=== PATIENT | male | born 1965 | race Caucasian/White ===

== ENCOUNTER 2016-08-28 09:21 | Observation (INO) | payer MEDICARE, OTHER ==
[2016-08-28 09:28] VITALS: BMI 33.9
--- NOTE | 2016-08-28 09:44 | PDOC ---
History of Present Illness <Ted Burrell - Last Filed: 08/28/16 16:31> - General History Source: Patient Exam Limitations: No Limitations - History of Present Illness Initial Comments: 08/28/16 11:15 The patient is a 51 year old male, former smoker (quit one year ago), with a significant past medical history of work related back pain s/p 4 surgeries, HTN , and HLD who presents to the emergency department today for further evaluation of chest tightness, SOB, headache, back pain, and productive cough since yesterday. The patient notes that his back pain is normal to his baseline but notes that is accompanied by sharp right sided pain. The patient states that he is coughing up yellow-white sputum. The patient states that he took Tylenol with minimal relief of symptoms. The patient denies flu shot and sick contacts. The patient denies fever, chills, and sweats. The patient denies nausea, vomiting, and diarrhea. <Howard Wilson - Last Filed: 08/28/16 18:38> - General Chief Complaint: Chest Pain Stated Complaint: CHEST PAIN, SOB Time Seen by Provider: 08/28/16 09:43 Past History - Past Medical History Anemia: No Asthma: No Cancer: No Cardiac Disorders: No CVA: No COPD: No CHF: No Dementia: No Diabetes: No GI Disorders: No Disorders: No HTN: Yes Hypercholesterolemia: Yes Kidney Stones: No Liver Disease: No Suicide Attempt (Hx): No Seizures: Yes (XANAX RELATED) Thyroid Disease: No - Surgical History Abdominal Surgery: No Appendectomy: No Cardiac Surgery: No Cholecystectomy: No Lung Surgery: No Neurologic Surgery: Yes (NECK & BACK FUSSION) Orthopedic Surgery: No - Reproductive History Testicular Surgery: No - Immunization History Td Vaccination: Yes (2010) Immunization Up to Date: Yes - Psycho/Social/Smoking Cessation Hx Anxiety: Yes Suicidal Ideation: No Smoking Status: Yes Smoking History: Former smoker Have you smoked in the past 12 months: Yes Number of Cigarettes Smoked Daily: 20 Information on smoking cessation initiated: No 'Breaking Loose' booklet given: 10/23/12 Hx Alcohol Use: No Drug/Substance Use Hx: No Substance Use Type: None Hx Substance Use Treatment: No <Ted Burrell - Last Filed: 08/28/16 16:31> <Howard Wilson - Last Filed: 08/28/16 18:38> - Past Medical History Allergies/Adverse Reactions: Allergies Allergy/AdvReac Type Severity Reaction Status Date / Time No Known Allergies Allergy Verified 08/28/16 09:22 Home Medications: Ambulatory Orders Albuterol Sulfate Inhaler - [Ventolin HFA Inhaler -] 1 - 2 inh PO Q4H #2 inhaler 08/28/16 Levofloxacin [Levaquin] 750 mg PO ONCE #10 tab 08/28/16 Lisinopril [Prinivil] 5 mg PO DAILY 08/28/16 Morphine Sulfate [Morphine Sulfate ER] 20 mg PO BID 08/28/16 Oxycodone HCl 30 mg PO QID 08/28/16 Rosuvastatin Calcium [Crestor] 10 mg PO DAILY 08/28/16 Review of Systems - Review of Systems Able to Perform ROS?: Yes Comments:: 08/28/16 11:17 GENERAL/CONSTITUTIONAL: No fever or chills. No weakness. HEAD, EYES, EARS, NOSE AND THROAT: No change in vision. No ear pain or discharge. No sore throat. CARDIOVASCULAR: No chest pain or shortness of breath. RESPIRATORY: (+) Cough, Chest tightness, SOB, wheezing, or hemoptysis. GASTROINTESTINAL: No nausea, vomiting, diarrhea or constipation. GENITOURINARY: No dysuria, frequency, or change in urination. MUSCULOSKELETAL: (+) Back pain. SKIN: No rash NEUROLOGIC: No headache, vertigo, loss of consciousness, or change in strength/ sensation. ENDOCRINE: No increased thirst. No abnormal weight change. HEMATOLOGIC/LYMPHATIC: No anemia, easy bleeding, or history of blood clots. ALLERGIC/IMMUNOLOGIC: No hives or skin allergy. <Howard Wilson - Last Filed: 08/28/16 18:38> *Physical Exam - Vital Signs Last Vital Signs Temp Pulse Resp BP Pulse Ox 98 F 70 20 143/73 97 08/28/16 09:23 08/28/16 09:23 08/28/16 09:23 08/28/16 09:23 08/28/16 09:23 <Ted Burrell - Last Filed: 08/28/16 16:31> - Vital Signs Last Vital Signs Temp Pulse Resp BP Pulse Ox 98 F 70 20 143/73 97 08/28/16 09:23 08/28/16 09:23 08/28/16 09:23 08/28/16 09:23 08/28/16 10:32 - Physical Exam Comments: 08/28/16 11:18 GENERAL: Awake, alert, and fully oriented, in no acute distress HEAD: No signs of trauma EYES: PERRLA, EOMI, sclera anicteric, conjunctiva clear ENT: Auricles normal inspection, hearing grossly normal, nares patent, oropharynx clear without exudates. Moist mucosa NECK: Normal ROM, supple, no lymphadenopathy, JVD, or masses LUNGS: (+) Wheezing. No crackles CHEST: (+) Chest tenderness HEART: Regular rate and rhythm, normal S1 and S2, no murmurs, rubs or gallops ABDOMEN: Soft, nontender, normoactive bowel sounds. No guarding, no rebound. No masses EXTREMITIES: Normal range of motion, no edema. No clubbing or cyanosis. No cords, erythema, or tenderness NEUROLOGICAL: Cranial nerves II through XII grossly intact. Normal speech, normal gait SKIN: Warm, Dry, normal turgor, no rashes or lesions noted. <Howard Wilson - Last Filed: 08/28/16 18:38> Heart Score/ECG Review - ECG Impressions Comment:: 08/28/16 11:23 ECG Impression: Normal sinus rhyth. Voltage criteria for LVH. Otherwise normal. <Howard Wilson - Last Filed: 08/28/16 18:38> ED Treatment Course - LABORATORY CBC & Chemistry Diagram: 08/28/16 10:20 08/28/16 10:20 <Ted Burrell - Last Filed: 08/28/16 16:31> - LABORATORY CBC & Chemistry Diagram: 08/28/16 10:20 08/28/16 10:20 - ADDITIONAL ORDERS Additional order review: Laboratory Results 08/28/16 10:20 Sodium 139 Potassium 4.1 Chloride 104 Carbon Dioxide 26 Anion Gap 9 BUN 19 H Creatinine 0.9 D Creat Clearance w eGFR > 60 Random Glucose 82 Calcium 8.8 Total Bilirubin 0.4 AST 56 H D ALT 31 D Alkaline Phosphatase 62 Total Protein 6.8 Albumin 3.2 L 08/28/16 10:20 Influenza Types A,B Antigen (TIM) - Final Nasopharyngeal Swab - Final 08/28/16 10:20 RBC 4.98 MCV 72.3 L MCHC 31.7 L RDW 20.6 H MPV 7.2 L Neutrophils % 81.4 Lymphocytes % 7.7 L Monocytes % 10.5 H D Eosinophils % 0.1 Basophils % 0.3 - Medications Given in the ED: ED Medications Discontinued Medications Generic Name Dose Route Start Last Admin Trade Name Nicki PRN Reason Stop Dose Admin Albuterol Sulfate 1 amp 08/28/16 10:01 08/28/16 10:46 Ventolin 0.083% Nebulizer Soln - NEB 08/28/16 10:02 1 amp ONCE ONE Administration Ketorolac Tromethamine 30 mg 08/28/16 10:04 08/28/16 10:46 Toradol Injection - IVPUSH 08/28/16 10:05 30 mg ONCE ONE Administration Morphine Sulfate 4 mg 08/28/16 10:04 08/28/16 10:46 Morphine Injection - IVPUSH 08/28/16 10:05 4 mg ONCE ONE Administration Ondansetron HCl 4 mg 08/28/16 10:04 08/28/16 10:46 Zofran Injection IVPB 08/28/16 10:05 4 mg ONCE ONE Administration <Howard Wilson - Last Filed: 08/28/16 18:38> Medical Decision Making - Medical Decision Making 08/28/16 15:[address] Armijo, Will treat as outpatient with Levaquin. CT confirmed Pneumonia but negative for Chest Mass. <Ted Burrell - Last Filed: 08/28/16 16:31> - Medical Decision Making 08/28/16 14:39 Dr. Beach's office called Dr. Armijo is components engineer for Dr. Beach today. 08/28/16 14:42 Dr. Armijo's note says that he admits to hospitalist during the week. 08/28/16 16:40 Dr. Armijo paged overhead. 08/28/16 16:46 Dr. Armijo is present in the ED. Case discussed. Elects to send patient home. 08/28/16 16:23 Dr. Armijo is present in the ED. He said that Dr. Beach would like to admit the patient by personal request. <Howard Wilson - Last Filed: 08/28/16 18:38> *DC/Admit/Observation/Transfer - Discharge Dispostion Admit: Yes - Attestations Physician Attestion: 08/28/16 09:44 I, Dr. Ted Burrell, attest that this document has been prepared under my direction and personally reviewed by me in its entirety. I further attest, that it accurately reflects all work, treatment, procedures and medical decision -making performed by me. <Ted Burrell - Last Filed: 08/28/16 16:31> <Howard Wilson - Last Filed: 08/28/16 18:38> Diagnosis at time of Disposition: Pneumonia Qualifiers: Pneumonia type: due to unspecified organism Laterality: left Lung location: lower lobe of lung Qualified Code(s): J18.9 - Pneumonia, unspecified organism - Discharge Dispostion Condition at time of disposition: Improved - Prescriptions - Referrals - Patient Instructions
[2016-08-28] MEDS ORDERED: ALBUTEROL SO4 0.083% IH SOL 2.5 MG/3 ML VIAL.NEB. NEB ONE (10:01)
[2016-08-28] MEDS ORDERED: morphine CARPU-JECT 4 MG/1 ML DISP.SYRIN IVPUSH ONE (10:04)
[2016-08-28] MEDS ORDERED: KETOROLAC TROMETHAMINE 30 MG/1 ML VIAL IVPUSH ONE (10:04)
[2016-08-28] MEDS ORDERED: ONDANSETRON 4 MG/2 ML VIAL IVPB ONE (10:04)
[2016-08-28 10:33] LABS: BASOPHIL 0.3 % (0-2.0); EOSINOPHIL 0.1 % (0-4.5); MCH 22.9 pg (25.7-33.7); MCHC 31.7 g/dl (32.0-35.9); MEAN CELL VOLUME 72.3 fl (80-96); MEAN PLT VOLUME 7.2 fl (7.5-11.1); NEUTROPHILS 81.4 % (42.8-82.8); PLATELET COUNT 172 K/MM3 (134-434); RDW 20.6 % (11.9-15.9); WHITE BLOOD COUNT 10.7 K/mm3 (4.0-10.0)
[2016-08-28] MEDS ORDERED: KETOROLAC TROMETHAMINE 30 MG/1 ML VIAL ONE (10:39)
[2016-08-28] MEDS ORDERED: morphine CARPU-JECT 4 MG/1 ML DISP.SYRIN ONE (10:39)
[2016-08-28] MEDS ORDERED: ONDANSETRON 4 MG/2 ML VIAL ONE (10:39)
[2016-08-28 11:04] LABS: ALBUMIN 3.2 g/dl (3.4-5.0); ALK PHOS 62 U/L (45-117); ANION GAP 9 (8-16); BILIRUBIN,TOTAL 0.4 mg/dL (0.2-1.0); CALCIUM 8.8 mg/dL (8.5-10.1); CO2 26 mmol/L (21-32); CREATININE 0.9 mg/dL (0.7-1.3); GLUCOSE,RANDOM 82 mg/dL (74-106); SGOT/AST 56 U/L (15-37); SGPT/ALT 31 U/L (12-78); TOT PROT 6.8 g/dl (6.4-8.2)
[2016-08-28 11:27] LABS: HYPOCHROMIA 2+
[2016-08-28 11:28] LABS: ANISOCYTOSIS 1+; MICROCYTOSIS 1+
[2016-08-28] MEDS ORDERED: cefTRIAXone 1 GM/50 ML BAG (PRE-DOCKED) IVPB ONE (11:42)
[2016-08-28] MEDS ORDERED: AZITHROMYCIN IVPB 500 MG in DEXTROSE 5%-WATER - 250 ML IVPB ONE (11:42)
[2016-08-28] MEDS ORDERED: morphine CARPU-JECT 10 MG/1 ML DISP.SYRIN IVPUSH ONE ×2 (11:43→15:20)
[2016-08-28] MEDS ORDERED: CEFTRIAXONE 50 ML ONE (12:20)
[2016-08-28] MEDS ORDERED: morphine CARPU-JECT 10 MG/1 ML DISP.SYRIN ONE ×2 (12:20→15:33)
[2016-08-28] MEDS ORDERED: AZITHROMYCIN IVPB 250 ML IVPB ONE (12:39)
[2016-08-28] MEDS ORDERED: ACETAMINOPHEN 325 MG TABLET (FP) PO PRN (16:33)
[2016-08-28] MEDS ORDERED: ONDANSETRON 4 MG/2 ML VIAL IVPB PRN (16:33)
--- NOTE | 2016-08-28 16:40 | HP ---
Admitting History and Physical - Primary Care Physician PCP: Michael Beach - Admission Chief Complaint: I am having pain History of Present Illness: Mr Perez is a 51 year old male who comes in with pain in his back. He has chronic pain but says it is worse recently. He says it is poorly controlled with his current narcotic regimen. He also notes he is having cough with minimal sputum production. He denies fevers, chills, lightheadedness, chest pain , shortness of breath, nausea, vomiting, diarrhea, constipation, or edema. History Source: Patient Limitations to Obtaining History: No Limitations - Past Medical History Cardiovascular: Yes: HTN Musculoskeletal: Yes: Chronic low back pain - Past Surgical History Additional Past Surgical History: back surgery - Smoking History Smoking history: Former smoker Have you smoked in the past 12 months: Yes Aproximately how many cigarettes per day: 20 - Alcohol/Substance Use Hx Alcohol Use: No History of Substance Use: reports: None - Social History Usual Living Arrangement: Yes: With Spouse ADL: Independent History of Recent Travel: No Home Medications - Allergies Allergies/Adverse Reactions: Allergies Allergy/AdvReac Type Severity Reaction Status Date / Time No Known Allergies Allergy Verified 08/28/16 09:22 - Home Medications Home Medications: Ambulatory Orders Albuterol Sulfate Inhaler - [Ventolin HFA Inhaler -] 1 - 2 inh PO Q4H #2 inhaler 08/28/16 Levofloxacin [Levaquin] 750 mg PO ONCE #10 tab 08/28/16 Lisinopril [Prinivil] 5 mg PO DAILY 08/28/16 Morphine Sulfate [Morphine Sulfate ER] 20 mg PO BID 08/28/16 Oxycodone HCl 30 mg PO QID 08/28/16 Rosuvastatin Calcium [Crestor] 10 mg PO DAILY 08/28/16 Family Disease History - Family Disease History Family Disease History: Heart Disease: Father Review of Systems Findings/Remarks: Full review of systems obtained, as per HPI and otherwise negative Physical Examination Vital Signs: Vital Signs Temperature 98 F 08/28/16 09:23 Pulse Rate 70 08/28/16 09:23 Respiratory Rate 20 08/28/16 09:23 Blood Pressure 143/73 08/28/16 09:23 O2 Sat by Pulse Oximetry (%) 97 08/28/16 10:32 Constitutional: Yes: Well Nourished, No Distress, Calm Eyes: Yes: Conjunctiva Clear, EOM Intact HENT: Yes: Atraumatic, Normocephalic Cardiovascular: Yes: Regular Rate and Rhythm. No: Gallop, Murmur, Rub Respiratory: Yes: Regular, CTA Bilaterally. No: Rales, Rhonchi, Wheezes Gastrointestinal: Yes: Normal Bowel Sounds, Soft. No: Distention, Tenderness Extremities: Yes: WNL Edema: No Labs: CBC, BMP 08/28/16 10:20 08/28/16 10:20 Imaging - Results Chest X-ray: Report Reviewed, Image Reviewed Cat Scan: Report Reviewed Problem List - Problems (1) Pneumonia Assessment/Plan: -admit to hospital for IV antibiotics -if remains afebrile with normal WBC for 48 hours, can discharge home -start rocephin and zithromax Code(s): J18.9 - PNEUMONIA, UNSPECIFIED ORGANISM Qualifiers: Pneumonia type: due to unspecified organism Laterality: left Lung location: lower lobe of lung Qualified Code(s): J18.9 - Pneumonia, unspecified organism (2) HTN (hypertension) Assessment/Plan: -continue lisinopril and HCTZ Code(s): I10 - ESSENTIAL (PRIMARY) HYPERTENSION (3) Chronic pain Assessment/Plan: -pharmacy called -continue on home regimen without change -followed by pain management Code(s): G89.29 - OTHER CHRONIC PAIN
--- NOTE | 2016-08-28 17:23 | EKG ---
Test Reason : Blood Pressure : / mmHG Vent. Rate : 067 BPM Atrial Rate : 067 BPM P-R Int : 136 ms QRS Dur : 098 ms QT Int : 410 ms P-R-T Axes : 022 -29 -06 degrees QTc Int : 433 ms NORMAL SINUS RHYTHM MODERATE VOLTAGE CRITERIA FOR LVH, MAY BE NORMAL VARIANT BORDERLINE ECG WHEN COMPARED WITH ECG OF 06-MAR-2014 14:37, MINIMAL CRITERIA FOR SEPTAL INFARCT ARE NO LONGER PRESENT Confirmed by NIECY PRIDE, WILD ([id number]) on 08/28/2016 5:22:37 PM Referred By: Confirmed By:WILD PEMBERTON MD
[2016-08-28] MEDS ORDERED: oxyCODONE HCL 5 MG TABLET ONE (18:06)
[2016-08-28] MEDS: oxyCODONE HCL 5 MG TABLET PO SCH ×2 (18:11→19:03)
[2016-08-28] MEDS: DICLOFENAC SODIUM 25 MG TABLET.DR PO SCH ×2 (19:04→22:12)
[2016-08-28] MEDS ORDERED: QUEtiapine FUMARATE 25 MG TABLET (FP) PO SCH (22:00)
[2016-08-28] MEDS: morphine SO4 SUSTAINED ACTING 15 MG TABLET.SA PO SCH (22:07)
[2016-08-28] MEDS: ATORVASTATIN CA 20 MG TABLET (FP) PO SCH (22:07)
[2016-08-28] MEDS: ALBUTEROL SO4 0.083% IH SOL 2.5 MG/3 ML VIAL.NEB. NEB PRN (22:36)
[2016-08-29] MEDS: oxyCODONE HCL 5 MG TABLET PO SCH ×4 (00:25→17:37)
[2016-08-29] MEDS: ALBUTEROL SO4 0.083% IH SOL 2.5 MG/3 ML VIAL.NEB. NEB PRN ×3 (03:49→21:45)
[2016-08-29] MEDS ORDERED: PT OWN MED DRAWER 7, Y5N ONE ×4 (07:04→19:37)
[2016-08-29 07:47] LABS: BASOPHIL 0.3 % (0-2.0); EOSINOPHIL 1.5 % (0-4.5); MCH 22.7 pg (25.7-33.7); MCHC 31.3 g/dl (32.0-35.9); MEAN CELL VOLUME 72.5 fl (80-96); MEAN PLT VOLUME 8.1 fl (7.5-11.1); PLATELET COUNT 168 K/MM3 (134-434); RDW 20.3 % (11.9-15.9); WHITE BLOOD COUNT 6.8 K/mm3 (4.0-10.0)
[2016-08-29 08:20] LABS: CALCIUM 8.4 mg/dL (8.5-10.1)
[2016-08-29 08:24] LABS: CREATININE 0.8 mg/dL (0.7-1.3); MAGNESIUM 1.8 mg/dL (1.8-2.4); PHOSPHOROUS 3.5 mg/dL (2.5-4.9)
[2016-08-29] MEDS: morphine SO4 SUSTAINED ACTING 15 MG TABLET.SA PO SCH ×2 (09:09→22:19)
[2016-08-29] MEDS: LISINOPRIL 10 MG TABLET (FP) PO SCH (09:10)
[2016-08-29] MEDS: LACTOBACILLUS ACIDOPHILUS 1 EACH TAB (FP) PO SCH (09:11)
[2016-08-29] MEDS: HYDROCHLOROTHIAZIDE 12.5 MG CAPSULE (FP) PO SCH (09:11)
[2016-08-29] MEDS: ENOXAPARIN NA (PORCINE) 40 MG/0.4 ML DISP.SYRIN SQ SCH (09:11)
[2016-08-29] MEDS: CITALOPRAM HYDROBROMIDE 20 MG TABLET (FP) PO SCH (09:11)
[2016-08-29] MEDS: CEFTRIAXONE 50 ML IVPB SCH (09:12)
[2016-08-29] MEDS: DICLOFENAC SODIUM 25 MG TABLET.DR PO SCH ×4 (09:12→22:21)
[2016-08-29] MEDS: AZITHROMYCIN IVPB 250 ML IVPB SCH (09:12)
[2016-08-29] MEDS ORDERED: INFLUENZA VACCINE 45 MCG/0.5 ML (MDV 16-17) IM ONE (10:00)
--- NOTE | 2016-08-29 15:17 | CON.PSY ---
Psychiatry Consult Chief Complaint: I have a lot of anxiety and depression Symptoms: reports: Anxiety - Previous Psychiatric Treatment Outpatient: Less than 6 mos ago Inpatient: None - Previous Substance Abuse Treatment Outpatient: None Inpatient: None - Reason for Previous Treatment Reason for Previous Treatment: Major Depression, Anxiety or Panic Disorder - Family History Family History: Unremarkable - Current Medications Current Medications: Active Medications Acetaminophen (Tylenol -) 650 mg PO Q4H PRN PRN Reason: FEVER OR PAIN Albuterol Sulfate (Ventolin 0.083% Nebulizer Soln -) 1 amp NEB Q6H PRN PRN Reason: SHORT OF BREATH/WHEEZING Last Admin: 08/29/16 10:50 Dose: 1 amp Atorvastatin Calcium (Lipitor -) 20 mg PO HS [facility] Last Admin: 08/28/16 22:07 Dose: 20 mg Citalopram Hydrobromide (Celexa -) 40 mg PO DAILY [facility] Last Admin: 08/29/16 09:11 Dose: 40 mg Clonazepam (Klonopin -) 1 mg PO BID [facility] Diclofenac Sodium (Voltaren -) 25 mg PO QID [facility] Last Admin: 08/29/16 15:07 Dose: 25 mg Enoxaparin Sodium (Lovenox -) 40 mg SQ DAILY [facility] Last Admin: 08/29/16 09:11 Dose: 40 mg Hydrochlorothiazide (Hctz -) 12.5 mg PO DAILY [facility] Last Admin: 08/29/16 09:11 Dose: 12.5 mg Azithromycin (Zithromax 500mg Ivpb (Pre-Docked)) 250 mls @ 250 mls/hr IVPB DAILY [facility] Last Admin: 08/29/16 09:12 Dose: 250 mls/hr Ceftriaxone Sodium (Rocephin 1gm Ivpb (Pre-Docked)) 50 mls @ 100 mls/hr IVPB DAILY [facility] Last Admin: 08/29/16 09:12 Dose: 100 mls/hr Lactobacillus Acidophilus (Bacid -) 1 tab PO DAILY [facility] Last Admin: 08/29/16 09:11 Dose: 1 tab Lisinopril (Prinivil) 10 mg PO DAILY [facility] Last Admin: 08/29/16 09:10 Dose: 10 mg Morphine Sulfate (Ms Contin -) 15 mg PO BID [facility] Last Admin: 08/29/16 09:09 Dose: 15 mg Ondansetron HCl (Zofran Injection) 4 mg IVPB Q6H PRN PRN Reason: NAUSEA Oxycodone HCl (Roxicodone -) 20 mg PO Q6HPO [facility] Last Admin: 08/29/16 12:18 Dose: 20 mg - Allergies Allergies: Allergies Allergy/AdvReac Type Severity Reaction Status Date / Time No Known Allergies Allergy Verified 08/28/16 09:22 - Current Living Status Usual Living Arrangement: With Parent - Current Mental Status Evaluation Appearance: Well Groomed Attitude: Cooperative - Affect Affect: Constrictive Appropriateness: Appropriate to Content - Mood Mood: Anxious - Speech/Language Expressive: Coherent - Psychomotor Activity Psychomotor Activity: Slowed - Thought Process Thought Process: Intact - Thought Content Hallucinations: Absent Delusions: Absent - Cognition Attention: Alert Orientation: Time Memory, Immediate Recall: Intact - Concentration Serial Sevens Intact: Yes Simple Calculations Intact: Yes - Abstraction Proverb Interpretation: Intact Judgement: Minimally Impaired - Insight Insight: Intact - Impulse Control Impulse Control: Good Control - Suicidal Ideation Suicidal Ideation: No - Homicidal Ideation Homicidal Ideation: No Assessment/Plan add Klonapin 1mg po bid
--- NOTE | 2016-08-29 17:10 | PN ---
Progress Note, Physician Chief Complaint: Mr Perez says he is feeling better, still mainly complains of back pain. No cp, sob, n/v. Requesting consult with Dr Montero. - Current Medication List Current Medications: Active Medications Acetaminophen (Tylenol -) 650 mg PO Q4H PRN PRN Reason: FEVER OR PAIN Albuterol Sulfate (Ventolin 0.083% Nebulizer Soln -) 1 amp NEB Q6H PRN PRN Reason: SHORT OF BREATH/WHEEZING Last Admin: 08/29/16 10:50 Dose: 1 amp Atorvastatin Calcium (Lipitor -) 20 mg PO HS [facility] Last Admin: 08/28/16 22:07 Dose: 20 mg Citalopram Hydrobromide (Celexa -) 40 mg PO DAILY [facility] Last Admin: 08/29/16 09:11 Dose: 40 mg Clonazepam (Klonopin -) 1 mg PO BID [facility] Diclofenac Sodium (Voltaren -) 25 mg PO QID [facility] Last Admin: 08/29/16 15:07 Dose: 25 mg Enoxaparin Sodium (Lovenox -) 40 mg SQ DAILY [facility] Last Admin: 08/29/16 09:11 Dose: 40 mg Hydrochlorothiazide (Hctz -) 12.5 mg PO DAILY [facility] Last Admin: 08/29/16 09:11 Dose: 12.5 mg Azithromycin (Zithromax 500mg Ivpb (Pre-Docked)) 250 mls @ 250 mls/hr IVPB DAILY [facility] Last Admin: 08/29/16 09:12 Dose: 250 mls/hr Ceftriaxone Sodium (Rocephin 1gm Ivpb (Pre-Docked)) 50 mls @ 100 mls/hr IVPB DAILY [facility] Last Admin: 08/29/16 09:12 Dose: 100 mls/hr Lactobacillus Acidophilus (Bacid -) 1 tab PO DAILY [facility] Last Admin: 08/29/16 09:11 Dose: 1 tab Lisinopril (Prinivil) 10 mg PO DAILY [facility] Last Admin: 08/29/16 09:10 Dose: 10 mg Morphine Sulfate (Ms Contin -) 15 mg PO BID [facility] Last Admin: 08/29/16 09:09 Dose: 15 mg Ondansetron HCl (Zofran Injection) 4 mg IVPB Q6H PRN PRN Reason: NAUSEA Oxycodone HCl (Roxicodone -) 20 mg PO Q6HPO [facility] Last Admin: 08/29/16 12:18 Dose: 20 mg - Objective Vital Signs: Vital Signs Temperature 98.6 F 08/29/16 15:39 Pulse Rate 54 L 08/29/16 15:39 Respiratory Rate 18 08/29/16 15:39 Blood Pressure 106/72 08/29/16 15:39 O2 Sat by Pulse Oximetry (%) 96 08/29/16 13:12 Constitutional: Yes: No Distress, Calm, Obese Cardiovascular: Yes: Regular Rate and Rhythm. No: Gallop, Murmur, Rub Respiratory: Yes: Regular, CTA Bilaterally. No: Rales, Rhonchi, Wheezes Gastrointestinal: Yes: Normal Bowel Sounds, Soft. No: Distention, Tenderness Extremities: Yes: WNL Edema: No Labs: CBC, BMP 08/29/16 06:15 08/29/16 06:15 Problem List - Problems (1) Pneumonia Code(s): J18.9 - PNEUMONIA, UNSPECIFIED ORGANISM Qualifiers: Pneumonia type: due to unspecified organism Laterality: left Lung location: lower lobe of lung Qualified Code(s): J18.9 - Pneumonia, unspecified organism (2) HTN (hypertension) Code(s): I10 - ESSENTIAL (PRIMARY) HYPERTENSION (3) Chronic pain Code(s): G89.29 - OTHER CHRONIC PAIN Assessment/Plan (1) Pneumonia Assessment/Plan: -continue rocephin and zithromax day 2 -plan for discharge tomorrow Code(s): J18.9 - PNEUMONIA, UNSPECIFIED ORGANISM Qualifiers: Pneumonia type: due to unspecified organism Laterality: left Lung location: lower lobe of lung Qualified Code(s): J18.9 - Pneumonia, unspecified organism (2) HTN (hypertension) Assessment/Plan: -continue lisinopril and HCTZ Code(s): I10 - ESSENTIAL (PRIMARY) HYPERTENSION (3) Chronic pain Assessment/Plan: -continue current regimen, this is his home regimen -Dr Montero consulted Code(s): G89.29 - OTHER CHRONIC PAIN (4) Anxiety -concern possibly overtaking xanax -did not tolerate seroquel -psychiatry consulted -klonipin added by psychiatry
[2016-08-29] MEDS: clonazePAM 0.5 MG TABLET PO SCH (22:19)
[2016-08-29] MEDS: ATORVASTATIN CA 20 MG TABLET (FP) PO SCH (22:19)
[2016-08-30] MEDS: oxyCODONE HCL 5 MG TABLET PO SCH ×3 (00:03→11:36)
[2016-08-30] MEDS: ALBUTEROL SO4 0.083% IH SOL 2.5 MG/3 ML VIAL.NEB. NEB PRN (07:00)
[2016-08-30 08:21] LABS: BASOPHIL 0.6 % (0-2.0); EOSINOPHIL 3.1 % (0-4.5); MCHC 31.6 g/dl (32.0-35.9); MEAN CELL VOLUME 72.8 fl (80-96); MEAN PLT VOLUME 8.5 fl (7.5-11.1); NEUTROPHILS 49.3 % (42.8-82.8); PLATELET COUNT 183 K/MM3 (134-434); RDW 20.4 % (11.9-15.9); WHITE BLOOD COUNT 5.5 K/mm3 (4.0-10.0)
[2016-08-30] MEDS ORDERED: PT OWN MED DRAWER 7, Y5N ONE ×2 (08:48→13:04)
[2016-08-30] MEDS: AZITHROMYCIN IVPB 250 ML IVPB SCH ×2 (08:52→09:01)
[2016-08-30] MEDS: DICLOFENAC SODIUM 25 MG TABLET.DR PO SCH ×3 (08:53→13:13)
[2016-08-30] MEDS: HYDROCHLOROTHIAZIDE 12.5 MG CAPSULE (FP) PO SCH ×2 (08:53→09:21)
[2016-08-30] MEDS: morphine SO4 SUSTAINED ACTING 15 MG TABLET.SA PO SCH ×2 (08:53→09:00)
[2016-08-30] MEDS: CITALOPRAM HYDROBROMIDE 20 MG TABLET (FP) PO SCH ×2 (08:53→09:00)
[2016-08-30] MEDS: LACTOBACILLUS ACIDOPHILUS 1 EACH TAB (FP) PO SCH ×2 (08:54→09:00)
[2016-08-30] MEDS: ENOXAPARIN NA (PORCINE) 40 MG/0.4 ML DISP.SYRIN SQ SCH ×2 (08:54→09:01)
[2016-08-30] MEDS: clonazePAM 0.5 MG TABLET PO SCH ×2 (08:54→09:00)
[2016-08-30] MEDS: LISINOPRIL 10 MG TABLET (FP) PO SCH ×2 (08:54→09:01)
[2016-08-30 09:29] LABS: CALCIUM 8.4 mg/dL (8.5-10.1); PHOSPHOROUS 4.5 mg/dL (2.5-4.9)
[2016-08-30] MEDS: CEFTRIAXONE 50 ML IVPB SCH (10:17)
--- NOTE | 2016-08-30 10:28 | PN ---
Progress Note (short form) - Note Progress Note: NEUROSURGERY CONSULT DICTATED Chart reviewed Pt examined History obtained Work related back pain s/p 4 lumbar surgeries, HTN, and HLD who presents to the emergency department today for chest tightness, SOB, and productive cough since 2 days ago. The patient notes that his back pain is normal to his baseline but notes that is accompanied by sharp right sided pain. Most recent surgery [address] Rodriguez [id number] fusion. Pain shoots down to R thigh and R leg/foot. R leg/ft weakness and numbness. Hospitalized at [facility] 5 weeks ago for "legs giving out" and told he had "cracked spine" and "fluid collection " but his surgeon informed him nothing should be done. PE: Tmax 99.3, VSS General- mildly obese; post TLS incision healed without sign of infection CV-RR; Lungs- B wheezes; Abd- benign; Ext- no sign of DVT CN- intact; Motor- R Quad/TF/ev/inv/EHL 3-4-, R PF 4-; L DF 4/5; Sensation- numbness LT R L4-5-S1; DTR-1+ CT/MRI LS 2012- prior L > R L4-5 laminectomies; B L4-5 cages; extensive spondylosis; L1-2 and L2-3 DDD/spondylolisthesis Chest CT- TRAN opacity r/o pneumonia WBC 5.5 Pt is still under the care of his operating surgeon and I will not take over his care Unlikely to improve with further surgeries given poor response thus far Upon treatment completion of pneumonia should return patient back to operating surgeon Dr Rodriguez intermediate accountant pain management to be considered Pt aware of the above
[2016-08-30 11:27] VITALS: BP 134/77; PULSE 55; TEMP 99
--- NOTE | 2016-08-30 11:49 | CONS ---
DATE OF CONSULTATION: 08/30/2016 CHIEF COMPLAINT: Pneumonia and increasing lower back pain. HISTORY OF PRESENT ILLNESS: The patient is a 51-year-old right-handed male with history of multiple lumbar surgeries as well as cervical spine surgery under the care of Dr. Shelton Rodriguez, hypertension, hypercholesterolemia, and recent ex-smoker, who complains of 3-day history of increasing productive cough and chest tightness. He also had developed some headache with the coughing. He denies significant fevers or chills. His back pain has been chronic, and he experiences pain right down to his buttock, posterior thigh, and the right foot. This is associated with weakness and numbness of right greater than left foot. He also has some mild residual left foot weakness. He has undergone multiple lumbar surgeries under the care of his operating surgeon, and the most recent was T11 to a sacral fusion at [facility] 20 months ago. The patient was recently admitted to [facility] and was found to have cracked spine as well as fluid collection over the sacral region. His surgeon reportedly did not feel there was anything surgical about his condition at all. PAST MEDICAL HISTORY: Significant for multilevel thoracic lumbar fusion, anterior cervical fusion, hypertension, chronic smoker which he quit a year ago. CURRENT MEDICATIONS: Include Zofran, Tylenol, Prinivil, Zithromax, Lovenox, Celexa, Bacid, Klonopin, Ventolin inhaler, hydrochlorothiazide, Roxicodone, MS-Contin, Voltaren, Lipitor. ALLERGIES: There are no known drug allergies. FAMILY HISTORY: Noncontributory. SOCIAL HISTORY: He used to smoke up to a year ago when he formally quit. He drinks alcohol socially. He lives at home. He is not working anymore. REVIEW OF SYSTEMS: Otherwise negative for other major cardiovascular, pulmonary, gastrointestinal, genitourinary, endocrinologic, neurologic, or psychologic problems except for the above. PHYSICAL EXAMINATION: Vital signs: Temperature is 97.9, maximum temperature 99.3, blood pressure is 135/80, pulse rate is 54, O2 saturation is 97% on room air. HEENT: Examination shows him to be normocephalic, atraumatic, anicteric. Neck: Supple with no nuchal rigidity. He has healed anterior cervical incision. Coronary: Examination demonstrated regular rhythm. Lungs: Shows bilateral wheezes. Abdomen: Benign, but mildly obese Extremities: Examination shows no signs of DVT. Neurologic: She is awake and alert and oriented x4. Cranial nerve examination is intact 2-12. Motor examination shows 5/5 strength upper extremities. The right lower extremity strength shows right quadriceps tibialis anterior, extensor hallucis longus, foot eversion even to be 3-4-/5, and right foot plantar flexion is 4-/5. Left foot dorsiflexion is 4/5. Sensory examination demonstrated diminished light touch and vibratory sensation in right L4, L5, and S1 distribution. Deep tendon reflexes are hyporeflexic throughout. There is no pathological long tract sign. His gait is minimally hunched over. He uses a pole, the IV pole, for assistance. Examination of the lower back shows a healed incision from about the lower thoracic spine all the way down to the sacrum. There are no obvious signs of infection. DIAGNOSTIC DATA: Doppler examination shows white blood cell count to be 5.5 (initially it was 10.7), hemoglobin is 10.9, and platelet count is 183,000. BUN 18 and creatinine [address] Prior CT and MRI of the lumbar spine from 2012 demonstrated appropriate prior laminectomy at L4-L5, mostly on the left side. There is extensive spondylosis. There are two interbody fusion cages at L4-L5. There is spondylolisthesis at L1-L2 and L2-L3 with marked degenerative disc disease and spondylosis. There was no severe stenosis. IMPRESSION: 1. Status post multiple lumbar/thoracic spinal surgeries including log-segment fusion from T11 to the sacrum. 2. History of anterior cervical fusion. 3. Left upper lobe pneumonia. 4. Hypertension. 5. Likely underlying chronic obstructive pulmonary disease. RECOMMENDATIONS: The patient presents with 5 days history of increasing cough and chest discomfort. A CT scan demonstrated possible pneumonia. He is being treated medically for such. His pain may be increased because of the recent increasing coughing and straining. The patient was just admitted at [facility] 5-6 weeks earlier and was under the care of his prior surgeon, Dr. Rodriguez. Therefore, it would not be appropriate for me to take over a chronic problem as the patient is still under the care of his operating surgeon. His medical condition should be stabilized, and the care be returned to his prior operating surgeon. Given that he has already undergone multiple surgeries, it is unlikely that his condition will improve further with further operative procedures. Therefore, it is not warranted for the patient to undergo further extensive evaluation of the thoracic and lumbar spine at this institution when his primary treating physician and primary treating institution are relatively close by. The above was discussed with the patient at bedside. MONA ANTUNEZ M.D. [place]/[id number]
--- NOTE | 2016-08-30 12:56 | PN ---
Progress Note (short form) - Note Progress Note: Mr Perez says he is feeling better, still mainly complains of back pain. No cp, sob, n/v. Requesting consult with Dr Montero. Current Medications Generic Name Dose Route Start Last Admin Trade Name Freq PRN Reason Stop Dose Admin Acetaminophen 650 mg 08/28/16 16:33 Tylenol - PO Q4H PRN FEVER OR PAIN Atorvastatin Calcium 20 mg 08/28/16 22:00 08/29/16 22:19 Lipitor - PO 20 mg HS MARIELENA Administration Azithromycin 250 mg 08/31/16 10:00 Zithromax - PO DAILY MARIELENA Cefuroxime Axetil 500 mg 08/30/16 22:00 Ceftin - PO BID MARIELENA Citalopram Hydrobromide 40 mg 08/29/16 10:00 08/30/16 09:00 Celexa - PO Not Given DAILY MARIELENA Clonazepam 1 mg 08/29/16 22:00 08/30/16 09:00 Klonopin - PO Not Given BID [facility] Diclofenac Sodium 25 mg 08/28/16 18:00 08/30/16 09:01 Voltaren - PO Not Given QID [facility] Hydrochlorothiazide 12.5 mg 08/29/16 10:00 08/30/16 09:21 Hctz - PO Not Given DAILY [facility] Lactobacillus Acidophilus 1 tab 08/29/16 10:00 08/30/16 09:00 Bacid - PO Not Given DAILY [facility] Lisinopril 10 mg 08/29/16 10:00 08/30/16 09:01 Prinivil PO Not Given DAILY [facility] Morphine Sulfate 15 mg 08/28/16 22:00 08/30/16 09:00 Ms Contin - PO Not Given BID [facility] Oxycodone HCl 20 mg 08/28/16 17:30 08/30/16 11:36 Roxicodone - PO 20 mg Q6HPO [facility] Administration - Objective Vital Signs: Vital Signs Period Temp Pulse Resp BP Sys/Newton Pulse Ox Last 24 Hr 97.9 F-99.3 F 51-65 16-20 103-135/51-80 95-97 Constitutional: Yes: No Distress, Calm, Obese Cardiovascular: Yes: Regular Rate and Rhythm. No: Gallop, Murmur, Rub Respiratory: Yes: Regular, CTA Bilaterally. No: Rales, Rhonchi, Wheezes Gastrointestinal: Yes: Normal Bowel Sounds, Soft. No: Distention, Tenderness Extremities: Yes: WNL Edema: No Labs: CBC, BMP 08/30/16 06:15 08/30/16 06:15 Problem List - Problems (1) Pneumonia Code(s): J18.9 - PNEUMONIA, UNSPECIFIED ORGANISM Qualifiers: Pneumonia type: due to unspecified organism Laterality: left Lung location: lower lobe of lung Qualified Code(s): J18.9 - Pneumonia, unspecified organism (2) HTN (hypertension) Code(s): I10 - ESSENTIAL (PRIMARY) HYPERTENSION (3) Chronic pain Code(s): G89.29 - OTHER CHRONIC PAIN Assessment/Plan (1) Pneumonia Assessment/Plan: -Received rocephin and zithromax day 3 Patient wants to go home. Switch to PO. Discharge today. To follow up with Dr. Yong harmon a week. Code(s): J18.9 - PNEUMONIA, UNSPECIFIED ORGANISM Qualifiers: Pneumonia type: due to unspecified organism Laterality: left Lung location: lower lobe of lung Qualified Code(s): J18.9 - Pneumonia, unspecified organism (2) HTN (hypertension) Assessment/Plan: -continue lisinopril and HCTZ Code(s): I10 - ESSENTIAL (PRIMARY) HYPERTENSION (3) Chronic pain Assessment/Plan: -continue current regimen, this is his home regimen -Dr Montero consult reviewed. Code(s): G89.29 - OTHER CHRONIC PAIN (4) Anxiety -concern possibly overtaking xanax -did not tolerate seroquel -psychiatry consulted -cydney added by psychiatry Patient requesting to be discharged today. He is stable for discharge.
--- NOTE | 2016-08-30 13:17 | DS ---
Physical Examination Vital Signs: Vital Signs Temperature 99.0 F 08/30/16 11:26 Pulse Rate 55 L 08/30/16 12:20 Respiratory Rate 18 08/30/16 12:20 Blood Pressure 134/77 08/30/16 12:20 O2 Sat by Pulse Oximetry (%) 95 08/30/16 12:59 Findings/Remarks: Patient admitted with pneumonia. Treated with IV Rocephin and azithromycin for 3 days. Patient improved and wants to go home. Switched to po Abx. Meds reconciled and stable for discharge. Labs: CBC, BMP 08/30/16 06:15 08/30/16 06:15 Discharge Summary Reason For Visit: CHRONIC PAIN; NARCOTIC DEPENDENT; PNEUMONIA Current Active Problems Chronic pain (Acute) HTN (hypertension) (Acute) Pneumonia (Acute) Condition: Improved - Instructions Diet, Activity, Other Instructions: Iván- So Sorry that you are sick. You have Pneumonia, but the CT scan shows that it is just pneumonia and should respond quickly to antibiotics. I sent an Antibiotic(Levaquin) and an inhaler to your pharmacy. Return to us if worse otherwise see your doctor early next week. Take your other medicines as prescribed. Best- Dr Ted Burrell Referrals: Michael Beach MD [Primary Care Provider] - - Home Medications Comprehensive Discharge Medication List: Ambulatory Orders Albuterol 0.083% Nebulizer Tara [Ventolin 0.083% Nebulizer Soln -] 1 amp NEB Q6H PRN #60 amp 08/30/16 Atorvastatin Ca [Lipitor] 20 mg PO HS #30 tablet 08/30/16 Azithromycin [Zithromax 250mg Tablets -] 250 mg PO DAILY #3 tablet 08/30/16 Cefuroxime Axetil [Ceftin -] 500 mg PO BID #10 tablet 08/30/16 Citalopram Hydrobromide [Celexa -] 40 mg PO DAILY #30 tablet 08/30/16 Clonazepam [Klonopin -] 1 mg PO BID #30 tablet MDD 2 08/30/16 Diclofenac Sodium [Voltaren -] 25 mg PO QID #30 tablet. 08/30/16 Hydrochlorothiazide [Hctz -] 12.5 mg PO DAILY #30 cap 08/30/16 Lactobacillus Acidophilus [Bacid -] 1 tab PO DAILY #7 tab 08/30/16 Lisinopril [Prinivil] 10 mg PO DAILY #30 tablet 08/30/16 Morphine *Sr* [Ms Contin -] 15 mg PO BID #30 tablet.sa MDD 2 08/30/16 Oxycodone HCl [Roxicodone -] 20 mg PO Q6HPO #30 tablet MDD 4 08/30/16 Quetiapine Fumarate [Seroquel -] 25 mg PO HS #30 tablet 08/30/16
[2016-08-30] MEDS ORDERED: CEFUROXIME AXETIL 500 MG TABLET PO SCH (22:00)
[2016-08-31] MEDS ORDERED: AZITHROMYCIN 250 MG TABLET (FP) PO SCH (10:00)
== END 2016-08-30 15:36 | disposition home or self-care (01) ==
LOC: SUPCPDRO 09:21 → JER 09:21 → INTOOBSV 17:20 → UNDOADMOB 17:20 → JERBED 17:20 → J8W 19:40
PROVIDERS: ADMIT Internal Medicine; ATTEND Internal Medicine
DX: J18.9 Pneumonia, unspecified organism (principal); I10 Essential (primary) hypertension; F41.9 Anxiety disorder, unspecified; F19.20 Other psychoactive substance dependence, uncomplicated; Z87.891 Personal history of nicotine dependence
CPT/HCPCS: 36415; 71020-TC; 71260-TC; 80048; 80053; 83735; 84100; 85025; 87040; 87254; 87804; 93005; 93010; 94640; 97116-GP; 97161-GP; 99285-25; G0378; Q2037